=== PATIENT | female | born 1950 | race Hispanic/Latino ===

== ENCOUNTER 2022-01-01 18:50 | Observation (INO) | payer MEDICAID, OTHER ==
[~2022-01-01] VITALS: Ht 147.3 cm; Wt 68.0 kg
[2022-01-01 19:21] LABS: BASOPHILS % (AUTO) 0.7 % (0.0-5.0); EOSINOPHILS % (AUTO) 1.5 % (0.0-8.0); HEMATOCRIT 41.5 % (36-48); LYMPHOCYTES % (AUTO) 35.5 % (21.0-51.0); MEAN CORPUSCULAR HEMOGLOBIN 30.1 pg (27.0-33.0); MEAN CORPUSCULAR HGB CONC 34.5 g/dL (32.0-36.0); MEAN CORPUSCULAR VOLUME 87.4 fL (79-99); MONOCYTES % (AUTO) 9.6 % (3.0-13.0); NEUTROPHILS % (AUTO) 52.4 % (40.0-77.0); PLATELET COUNT (AUTO) 232 K/uL (130-400); RED BLOOD CELL COUNT(AUTO) 4.75 MIL/uL (4.00-5.50); RED CELL DISTRIBUTION WIDTH 12.7 % (11.0-15.5); WHITE BLOOD COUNT (AUTO) 9.7 K/uL (4.8-10.8)
[2022-01-01] MEDS ORDERED: NITROGLYCERIN 1GM OINT 1 INCH/1GM TD ONE (19:30)
[2022-01-01 19:35] LABS: CREATININE 0.9 mg/dL (0.5-1.5)
[2022-01-01 19:44] LABS: TOTAL PROTEIN, SERUM 7.6 g/dL (6.0-8.3)
[2022-01-01] MEDS ORDERED: 0.9%NACL 1000ML 1,000 ML IV SCH (23:00)
[2022-01-01] MEDS ORDERED: METOPROLOL TARTRATE 1 MG/ML 5ML VIAL IV PRN (23:00)
[2022-01-01] MEDS ORDERED: ACETAMINOPHEN 325 MG TAB PO PRN ×2 (23:00)
[2022-01-01] MEDS ORDERED: ONDANSETRON 4MG INJ IV PRN (23:00)
[2022-01-01] MEDS ORDERED: NITROGLYCERIN 1GM OINT 1 INCH/1GM TD SCH (23:00)
[2022-01-01] MEDS ORDERED: MORPHINE 2 MG SYG IV PRN (23:00)
[2022-01-02 06:59] LABS: BASOPHILS % (AUTO) 0.4 % (0.0-5.0); EOSINOPHILS % (AUTO) 1.9 % (0.0-8.0); HEMATOCRIT 36.2 % (36-48); LYMPHOCYTES % (AUTO) 31.7 % (21.0-51.0); MEAN CORPUSCULAR HEMOGLOBIN 30.6 pg (27.0-33.0); MEAN CORPUSCULAR HGB CONC 34.5 g/dL (32.0-36.0); MEAN CORPUSCULAR VOLUME 88.5 fL (79-99); MONOCYTES % (AUTO) 8.5 % (3.0-13.0); PLATELET COUNT (AUTO) 202 K/uL (130-400); RED BLOOD CELL COUNT(AUTO) 4.09 MIL/uL (4.00-5.50); RED CELL DISTRIBUTION WIDTH 13.1 % (11.0-15.5); WHITE BLOOD COUNT (AUTO) 10.1 K/uL (4.8-10.8)
[2022-01-02 07:37] LABS: ALBUMIN 2.9 g/dL (3.5-5.0); CREATININE 0.7 mg/dL (0.5-1.5); POTASSIUM 3.7 mmol/L (3.5-5.1); TOTAL PROTEIN, SERUM 5.9 g/dL (6.0-8.3)
[2022-01-02 08:06] LABS: ERYTHROCYTE SEDIMENTATION RATE 82 MM/HR (0-30)
[2022-01-02 08:23] LABS: CHOLESTEROL 191 mg/dL (<200); HDL CHOLESTEROL 41 mg/dL (35-85); LDL DIRECT 90 mg/dL (0-99); TRIGLYCERIDES 390 mg/dL (30-200)
[2022-01-02] MEDS: FAMOTIDINE 20MG VIAL IV SCH ×2 (08:40→20:36)
[2022-01-02] MEDS: METOPROLOL TARTRATE 25 MG TAB PO SCH ×2 (08:40→20:36)
[2022-01-02] MEDS: CLOPIDOGREL 75MG TAB PO SCH ×2 (08:40→09:00)
[2022-01-02] MEDS: ENOXAPARIN SODIUM 40 MG/0.4 ML SYRINGE SQ SCH (08:41)
[2022-01-02 09:20] LABS: HEMOGLOBIN A1C 5.8 % (4.0-6.0)
[2022-01-02] MEDS ORDERED: HYDROCHLOROTHIAZIDE 25 MG TABLET PO ONE (11:30)
[2022-01-02] MEDS ORDERED: LISINOPRIL 10 MG TABLET PO SCH (11:30)
[2022-01-02] MEDS ORDERED: ATORVASTATIN 20 MG TABLET PO ONE (11:30)
[2022-01-02] MEDS ORDERED: ATORVASTATIN 40 MG TABLET PO SCH ×2 (12:00→21:00)
[2022-01-02 20:00] VITALS: BP 183/87
[2022-01-02] MEDS ORDERED: ATORVASTATIN 20 MG TABLET PO SCH (21:00)
[2022-01-02 21:30] VITALS: BP 169/79
[2022-01-03] MEDS ORDERED: METOPROLOL TARTRATE 1 MG/ML 5ML VIAL IV PRN
[2022-01-03 00:20] VITALS: BP 159/74
[2022-01-03 04:57] VITALS: BP 146/73
[2022-01-03 08:00] VITALS: BP 166/80
[2022-01-03] MEDS: FAMOTIDINE 20MG VIAL IV SCH (08:52)
[2022-01-03] MEDS: ENOXAPARIN SODIUM 40 MG/0.4 ML SYRINGE SQ SCH (08:53)
[2022-01-03] MEDS: METOPROLOL TARTRATE 25 MG TAB PO SCH (08:54)
[2022-01-03] MEDS: CLOPIDOGREL 75MG TAB PO SCH (08:54)
[2022-01-03] MEDS ORDERED: HYDR25TA PO (09:29)
[2022-01-03] MEDS ORDERED: LISI20TA24 PO (09:29)
[2022-01-03] MEDS ORDERED: ATOR40TA69 PO (09:29)
[2022-01-03] MEDS ORDERED: CLOP-31 PO (09:29)
[2022-01-03] MEDS ORDERED: METO25 PO (09:29)
[2022-01-03] MEDS ORDERED: LISINOPRIL 20 MG TABLET PO SCH (09:30)
[2022-01-03] MEDS ORDERED: HYDROCHLOROTHIAZIDE 25 MG TABLET PO SCH (09:30)
[2022-01-03 12:00] VITALS: BP 140/67
[2022-01-03] MEDS ORDERED: CLOP75TA32 PO (13:57)
[2022-01-03] MEDS ORDERED: ATORVASTATIN 40 MG TABLET PO SCH (21:00)
[2022-01-04] MEDS ORDERED: LISINOPRIL 20 MG TABLET PO SCH (09:00)
[2022-01-04] MEDS ORDERED: HYDROCHLOROTHIAZIDE 25 MG TABLET PO SCH (09:00)
== END 2022-01-03 14:41 | disposition home or self-care (01) ==
LOC: EDH 18:50 → INTOOBSV 18:51 → EDHIP 18:51 → 3BH 01-02 17:11
PROVIDERS: ADMIT Internal Medicine; ATTEND Internal Medicine
DX: I24.9 Acute ischemic heart disease, unspecified (principal); R07.89 Other chest pain; R42 Dizziness and giddiness; I63.81 Other cerebral infarction due to occlusion or stenosis of small artery; I10 Essential (primary) hypertension; R20.2 Paresthesia of skin; Z90.49 Acquired absence of other specified parts of digestive tract
CPT/HCPCS: 96361 ×3; 99285; 84484 ×4; 80053 ×2; 85025 ×2; 36415 ×2; 71045; 93880; 93005 ×3; 96374; 96376 ×2; 96372 ×2; 83036; 80061; 85651; 70450; G0378 ×22; S0028 ×3; J1650 ×2; J3490

== ENCOUNTER → 2023-07-31 | Outpatient (CLI) | payer OTHER ==
[~2023-07-31] MED LIST: ATOR40TA69 PO; CLOP75TA32 PO; HYDR25TA PO; LISI20TA24 PO; METO25 PO
== END | disposition home or self-care (01) ==
LOC: RAH 09:54
PROVIDERS: ATTEND Family Medicine
DX: Z13.820 Encounter for screening for osteoporosis (principal); M81.8 Other osteoporosis without current pathological fracture; Z78.0 Asymptomatic menopausal state
CPT/HCPCS: 77080

== ENCOUNTER → 2023-09-06 | Outpatient (CLI) | payer OTHER ==
[~2023-09-06] MED LIST changes: +IOHEXOL 350 MG/ML 100ML INFUS..BTL IV ONE; +METOPROLOL TARTRATE 1 MG/ML 5ML VIAL IV ONE
== END | disposition home or self-care (01) ==
LOC: RAH 09:53
PROVIDERS: ATTEND Student in an Organized Health Care Education/Training Program
DX: R07.9 Chest pain, unspecified (principal)
CPT/HCPCS: 75574; J3490; Q9967

== ENCOUNTER → 2023-10-17 | Outpatient (CLI) | payer OTHER ==
[~2023-10-17] MED LIST changes: -IOHEXOL 350 MG/ML 100ML INFUS..BTL IV ONE; -METOPROLOL TARTRATE 1 MG/ML 5ML VIAL IV ONE
== END | disposition home or self-care (01) ==
LOC: SHCH 15:19
PROVIDERS: ATTEND Student in an Organized Health Care Education/Training Program
DX: I08.0 Rheumatic disorders of both mitral and aortic valves (principal); R07.9 Chest pain, unspecified
CPT/HCPCS: 93306

== ENCOUNTER → 2024-05-17 | Outpatient (CLI) | payer OTHER | END | disposition home or self-care (01) | LOC: SHCH 10:57 | PROVIDERS: ATTEND Student in an Organized Health Care Education/Training Program | DX: R09.89 Other specified symptoms and signs involving the circulatory and respiratory systems (principal) | CPT/HCPCS: 93880 ==

== ENCOUNTER 2025-04-22 06:13 | Observation (INO) | payer OTHER ==
[2025-04-21 12:17] VITALS: BP 137/69; PULSE 75; RESP 18; TEMP 98.2
[2025-04-21 12:19] LABS: IMMATURE GRANULOCYTE ABSOLUTE 0.04 K/uL (0-1); NUCLEATED RED BLOOD CELLS 0.0 % (0.0-0.19); PLATELET COUNT (AUTO) 221 K/uL (130-400); RED BLOOD CELL COUNT(AUTO) 4.68 MIL/uL (4.00-5.50); RED CELL DISTRIBUTION WIDTH 13.0 % (11.0-15.5); WHITE BLOOD COUNT (AUTO) 8.1 K/uL (4.8-10.8)
--- NOTE | 2025-04-21 12:30 | NUR ---
RE: IS INITIAL IS INITIAL TEACHING DONE BY RT SIA DURING PREOP.
[2025-04-21 12:31] LABS: INR 1.0 (0.85-1.15)
[2025-04-21 12:33] LABS: CREATININE 0.8 mg/dL (0.5-1.0); GLOMERULAR FILTR. RATE CALC 77.0 mL/min (>90); GLUCOSE,RANDOM 97.0 mg/dL (70-105); SODIUM SERUM 138.0 mmol/L (136-145); UREA NITROGEN, BLOOD 14.0 mg/dL (7-18)
[~2025-04-22] VITALS: Ht 142.2 cm; Wt 68.0 kg
[2025-04-22] VITALS (26 sets, daily range): BP systolic 126–162; BP diastolic 33–79; PULSE 71–100; RESP 13–22; TEMP 97.1–98.3; O2SAT 97–100
[~2025-04-22 06:13] MED LIST changes: +ALEN70TA80 PO; -ATOR40TA69 PO; -CLOP75TA32 PO; +ERGO500093 PO; -HYDR25TA PO; -LISI20TA24 PO; +LOSA50TA64 PO; -METO25 PO
[2025-04-22] MEDS: CLINDAMYCIN IVPB 900MG/50ML 0 ML IV ONE (06:22)
[2025-04-22] MEDS: LACTATED RINGERS 1000ML 1,000 ML IV ONE (06:22)
[2025-04-22] MEDS ORDERED: MIDAZOLAM HCL 1 MG/ML 2ML VIAL ONE (06:49)
[2025-04-22] MEDS ORDERED: LIDOCAINE HCL/EPINEPHRINE 30 ML VIAL IJ ONE (07:10)
[2025-04-22] MEDS ORDERED: TRANEXAMIC ACID 1000MG/10ML ONE (08:00)
[2025-04-22] MEDS: TRANEXAMIC ACID 1000MG/10ML IV ONE ×3 (08:10→09:20)
[2025-04-22] MEDS ORDERED: NEOSTIGMINE METHYLSULFATE 1MG/ML IV ONE (09:55)
[2025-04-22] MEDS ORDERED: GLYCOPYRROLATE 0.2 MG/ML 5 ML VIAL ONE (09:55)
[2025-04-22] MEDS: 0.9%NACL 1000ML 1,000 ML IV SCH (10:00)
[2025-04-22] MEDS ORDERED: PoTASSium chl 10% ELIXIR 20MEQ 20 MEQ/15 ML UDCUP PO PRN (10:00)
[2025-04-22] MEDS ORDERED: CALCIUM CARB 500MG PO PRN (10:00)
[2025-04-22] MEDS ORDERED: CYCLOBENZAPRINE HCL 10 MG TABLET PO PRN (10:00)
[2025-04-22] MEDS ORDERED: PoTASSium chloRIDE 20MEQ ER 20 MEQ ERTAB PO PRN (10:00)
[2025-04-22] MEDS ORDERED: FERROUS FUMARATE 324 MG TABLET PO PRN (10:00)
--- NOTE | 2025-04-22 10:01 | OP ---
Operative Note: DATE OF PROCEDURE: 04/22/25 PREOPERATIVE DIAGNOSIS: Left knee osteoarthritis. POSTOPERATIVE DIAGNOSIS: Left knee osteoarthritis. PROCEDURE PERFORMED: Left knee total knee arthroplasty. SURGEON: Hailey Tate MD WOOL SAMPLER: Gabriel Nolasco and Eveline Sanchez. ANESTHESIA: General with adductor canal block. ANESTHESIA: SECURITY [employer]UTIONS ARCHITECT Klever Higgins. ESTIMATED BLOOD LOSS: 50cc. COMPLICATIONS: None. DRAINS: None. SPECIMENS REMOVED: resected bone. Not sent to pathology. IMPLANTS: [employer] II BCS size 3 Oxinium femur, size 2 tibial base plate, 32 mm patella, 9 mm polyethylene STATEMENT OF MEDICAL NECESSITY: The patient is a 74-year-old female who suffers from left knee osteoarthritis failing conservative management. After discussion of the risks, benefits, and alternatives with the patient, they voluntarily agreed to undergo the aforementioned procedure. DESCRIPTION OF PROCEDURE: Patient was properly identified in the preoperative holding area. Surgical site marking was verified and surgery consent reviewed. The patient was then taken to the operating room and placed in supine position on the OR table. After induction of general anesthesia, preoperative antibiotics were given, all bony prominences were well-padded, and a well padded tourniquet was applied but not inflated at this time. The left lower extremity was then prepped and draped in usual sterile fashion. Surgical time out was done verifying correct surgery, side, site, and location to be performed. We then began the procedure by exsanguinating the limb using an Esmarch and inflating the tourniquet to 350 mmHg. At this point, we made an anterior midline incision using a 10 blade, coming down sharply the level of the fascia. Skin flaps were elevated medially and laterally. We then obtained a clean 10 blade and performed a standard medial parapatellar arthrotomy. We excised the infrapatellar fat pad. We performed our soft tissue releases off of the tibia. We transected the ACL and removed the anterior portion of the medial & lateral meniscus. We then brought the knee into hyperflexion with the patella everted. We used our entry reamer to enter the femoral canal. We then placed our intramedullary cutting guide for our distal femoral cutting block. We then performed our distal femoral osteotomy ensuring appropriate rotation and removed the bony wafer. We then removed these pins and block and then used jig 2 to size the distal femur with the after mentioned size found. We then placed our 5-in-1 cutting block in 3 degrees of external rotation and took our 5 cuts ensuring to protect the patellar tendon and the collateral ligaments. We then removed the cutting block and our bony fragments using a curved osteotome. We then placed our PCL retractor subluxating the tibia anteriorly. Using an extra medullary tibial cutting guide, we hung the block for our proximal tibial cut taking 2 mm off the more diseased portion. Prior to pinning this block in place, we ensured appropriate varus/valgus alignment and posterior slope similar to the [place] slope of the patient's knee. We then performed our proximal tibia l osteotomy and removed the bony wafer using Bovie electrocautery to release any remaining soft tissue attachments. We then used our tibial sizing paddle and checked once more for varus & valgus alignment and found this to be appropriate. At this point, we pinned our tibial paddle in place. We then removed the PCL retractor and subluxated the tibia posteriorly while we placed our femoral trial component. We then finished preparing the notch with the reamer and box chisel. The notch portion of the trial femoral component was then placed. A posterior stabilized polyethylene, size 9 trial was placed. The knee was then taken thro [facility] range of motion and found to have stable full range of motion. We then placed a bump under the ankle and everted the patella to perform our freehand cut of the undersurface the patella. We then sized our patella and reamed to the lug holes for this. We placed our trial patellar component and begin to take the knee through range of motion. The patella had mild lateral tracking that improved after a small lateral release. At this point we began removing our trial components and punched the tibial keel prior to removing our tibial trial component. Final components were opened and cement was mixed on the back table while we injected local cocktail in the posterior capsule. We then thoroughly irrigated out the bone and dried the bony surfaces. We cemented our tibial component in place ensuring to remove excess cement and placed our trial polyethylene. We then cemented our femoral component in place once again taking time to ensure excess cement was removed leg was brought into full extension to help squeeze the excess cement from around the femoral component. We then brought the knee back in a flexion to remove this portion of the cement at this point we placed the ankle in a bump thoroughly irrigated off the patellar component and cemented our patellar component in standard fashion again removing excess cement. While we waited for the cement to cure, we thoroughly irrigated out the wound with normal saline. Once our cement had cured, we took the knee through a range of motion and found full and stable range of motion. We then elected to use the size 9 polyethylene and removed our trial polyethylene. We impacted our final polyethylene component in place in standard fashion and took the knee through a range of motion check once more. This was satisfactory so we began to repair the arthrotomy using #5 Ethibond and #1 Vicryl in interrupted [id number] fashion. Subcutaneous tissue was repaired using 2-0 Vicryl. Running subcuticular 3-0 Monocryl stitch with Dermabond placed over this for the skin. We then applied a foam barrier dressing and a pressure dressing consisting of 4 x 4's fluffs and an Antonio wrap. The tourniquet was then deflated. Patient was awakened from anesthesia, and they were taken to the recovery room in stable condition. HAILEY TATE MD Apr 22, 2025 10:01
[2025-04-22] MEDS ORDERED: PROMETHAZINE HCL 25 MG/ML 1ML AMPULE IM PRN (10:30)
--- NOTE | 2025-04-22 11:12 | HMCIMG ---
EXAM: CR left knee, 2 View. CLINICAL HISTORY: S/P LEFT TKA SURGERY COMPARISON: None provided. FINDINGS: Left total knee arthroplasty near anatomic alignment. No displaced fracture. Appropriate postsurgical changes about the left knee. Left knee joint effusion. IMPRESSION: 1. Left total knee arthroplasty in near anatomic alignment with joint effusion. /Henning
--- NOTE | 2025-04-22 11:20 | NUR ---
PATIENT ARRIVED TO ROOM 408 POST LTKA. PATIENT IS AWAKE, ALERT AND ORIENTED.
--- NOTE | 2025-04-22 13:30 | NUR ---
Unable to see patient due to severe pain, 01/14. Katie, nurse, informed. PT team to follow.
[2025-04-22] MEDS: HYDROcodone/APAP 5/325 1 TAB TABLET PO PRN (14:33)
--- NOTE | 2025-04-22 15:00 | NUR ---
ORTHO COORDINATOR: TEACHING REGARDING DVT AND PNEUMONIA PREVENTION, PAIN EXPECTATIONS AND PAIN MANAGEMENT. PATIENT UP TO CHAIR EATING DINNER, SPOUSE AT BEDSIDE. 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 B SCD SLEEVES IN ROOM, MACHINE IN ROOM. YOLY BANDAGE TO L KNEE. ICE PACK IN ROOM. PATIENT RETURN DEMONSTRATED PROPER USE OF INCENTIVE SPIROMETER AND VERBALIZED PROPER FREQUENCY OF USE. RATIONALE FOR USE REINFORCED. PATIENT RETURN DEMONSTRATED PROPER FOOT FLEXION AND EXTENSION EXERCISES, RATIONALE PROVIDED. PATIENT INTENDS TO DISCHARGE TO REHAB, REHAB PROCESS AND EXPECTATIONS REVIEWED. PAIN MANAGEMENT STRATEGY REVIEWED. PATIENT EDUCATED ON SCHEDULED AND PRN PAIN MEDICATIONS. NUMERIC PAIN SCALE REVIEWED. PATIENT INSTRUCTED MUST CALL OUT FOR PRN MEDICATIONS AND PROVIDE NUMERIC PAIN RATING AND TYPE OF PAIN, RATIONALE PROVIDED. SET EXPECTATION FOR PATIENT TO SHOWER TOMORROW, RATIONALE PROVIDED. PATIENT AND SPOUSE VERBALIZED UNDERSTANDING TO ALL INSTRUCTIONS. NO ADDITIONAL QUESTIONS OR CONCERNS AT THIS TIME.
[2025-04-23] VITALS: BP 121/55; PULSE 102; RESP 20; TEMP 99.1
[2025-04-23 04:00] VITALS: BP 126/59; PULSE 103; RESP 20; TEMP 98.6
[2025-04-23 05:46] LABS: NUCLEATED RED BLOOD CELLS 0.0 % (0.0-0.19); PLATELET COUNT (AUTO) 215.0 K/uL (130-400); RED BLOOD CELL COUNT(AUTO) 4.35 MIL/uL (4.00-5.50); RED CELL DISTRIBUTION WIDTH 13.1 % (11.0-15.5); WHITE BLOOD COUNT (AUTO) 16.0 K/uL (4.8-10.8)
[2025-04-23 05:54] LABS: CREATININE 1.2 mg/dL (0.5-1.0); GLOMERULAR FILTR. RATE CALC 47.0 mL/min (>90); GLUCOSE,RANDOM 126.0 mg/dL (70-105); SODIUM SERUM 139.0 mmol/L (136-145); UREA NITROGEN, BLOOD 22.0 mg/dL (7-18)
--- NOTE | 2025-04-23 07:56 | PN ---
Ortho postop day one. This morning patient is awake alert oriented. She is seated in a chair out of bed. Reports adequate pain control. Vital signs have remained stable afebrile. Laboratory results reviewed. Operative findings discussed with the patient. Antonio bandage his already been removed and the dressing is intact. She is seated in a chair and has been alternating using a footstool performing extension and flexion. The gastrocnemius a soft and nontender. Negative Homans. She does have bilateral SCD sleeves present but not currently connected. Ice present to operative site. Ambulated yesterday with physical therapy and is pending therapy this morning. Anticipated discharge goal is skilled nurse facility. Assessment: Status post left total knee arthroplasty. Plan: Continue with Dr. Tate's TKA protocol and discharge planning. Vitals/Labs Vital Signs Date Time Temp Pulse Resp B/P (MAP) Pulse Ox O2 Delivery O2 Flow Rate FiO2 04/23/25 04:00 98.6 103 20 126/59 94 Room Air 04/22/25 20:00 0 21 Laboratory Tests 04/23/25 05:40 Medications Current Medications Clindamycin HCl/ Dextrose 0 ml @ As Directed STK-MED ONCE IV; Start 04/22/25 at 06:22; Stop 04/22/25 at 06:22; Status DC Lactated Ringer's 1,000 ml @ As Directed STK-MED ONCE IV; Start 04/22/25 at 06:22; Stop 04/22/25 at 06:22; Status DC Propofol 200 mg STK-MED ONCE IV; Start 04/22/25 at 06:49; Stop 04/22/25 at 06:49; Status DC Midazolam HCl 2 mg STK-MED ONCE .ROUTE; Start 04/22/25 at 06:49; Stop 04/22/25 at 06:50; Status DC Fentanyl Citrate 100 mcg STK-MED ONCE .ROUTE; Start 04/22/25 at 06:50; Stop 04/22/25 at 06:50; Status DC Ondansetron HCl 4 mg STK-MED ONCE .ROUTE; Start 04/22/25 at 07:03; Stop 04/22/25 at 07:04; Status DC Phenylephrine HCl 10 mg STK-MED ONCE IV; Start 04/22/25 at 07:04; Stop 04/22/25 at 07:04; Status DC Rocuronium [place] 50 mg STK-MED ONCE .ROUTE; Start 04/22/25 at 07:08; Stop 04/22/25 at 07:08; Status DC Ropivacaine 150 mg STK-MED ONCE .ROUTE; Start 04/22/25 at 07:10; Stop 04/22/25 at 07:10; Status DC Lidocaine/ Epinephrine 30 ml STK-MED ONCE IJ; Start 04/22/25 at 07:10; Stop 04/22/25 at 07:10; Status DC Acetaminophen 100 ml @ As Directed STK-MED ONCE .ROUTE; Start 04/22/25 at 07:24; Stop 04/22/25 at 07:24; Status DC Cefazolin Sodium 2 gm STK-MED ONCE .ROUTE; Start 04/22/25 at 07:31; Stop 04/22/25 at 07:31; Status DC Tranexamic Acid 1,000 mg STK-MED ONCE .ROUTE; Start 04/22/25 at 08:00; Stop 04/22/25 at 08:00; Status DC Ketorolac Tromethamine 30 mg STK-MED ONCE .ROUTE; Start 04/22/25 at 08:13; Stop 04/22/25 at 08:13; Status DC Ropivacaine 150 mg STK-MED ONCE .ROUTE; Start 04/22/25 at 08:13; Stop 04/22/25 at 08:13; Status DC Cefazolin Sodium 2 gm STK-MED ONCE IVPB Last administered on 04/22/25at 08:00; Start 04/22/25 at 08:00; Stop 04/22/25 at 09:19; Status DC Tranexamic Acid 1,000 mg STK-MED ONCE IV Last administered on 04/22/25at 08:10; Start 04/22/25 at 08:10; Stop 04/22/25 at 09:19; Status DC Ropivacaine 150 mg STK-MED ONCE IJ Last administered on 04/22/25at 09:10; Start 04/22/25 at 09:10; Stop 04/22/25 at 09:19; Status DC Ketorolac Tromethamine 30 mg STK-MED ONCE IJ Last administered on 04/22/25at 09:10; Start 04/22/25 at 09:10; Stop 04/22/25 at 09:19; Status DC Tranexamic Acid 1,000 mg STK-MED ONCE IV; Start 04/22/25 at 00:00; Stop 04/22/25 at 00:01; Status Cancel Tranexamic Acid 1,000 mg STK-MED ONCE IV Last administered on 04/22/25at 09:20; Start 04/22/25 at 09:20; Stop 04/22/25 at 09:20; Status DC Fentanyl Citrate 100 mcg STK-MED ONCE .ROUTE; Start 04/22/25 at 09:33; Stop 04/22/25 at 09:33; Status DC Sodium Chloride 1,000 ml @ 100 mls/hr Q10H IV Last administered on 04/22/25at 10:00; Start 04/22/25 at 10:00; Stop 04/23/25 at 09:59 Polyethylene Glycol 17 gm DAILY PO; Start 04/23/25 at 09:00; Stop 05/23/25 at 08:59 Bisacodyl 10 mg DAILY PRN RC; Start 04/25/25 at 10:00; Stop 05/25/25 at 09:59 Ketorolac Tromethamine 15 mg Q6H PRN IV; Start 04/23/25 at 10:00; Stop 04/28/25 at 09:59 Ferrous Fumarate 324 mg DAILY PRN PO; Start 04/22/25 at 10:00; Stop 05/22/25 at 09:59 Ondansetron HCl 4 mg Q6H PRN IVP; Start 04/22/25 at 10:00; Stop 05/22/25 at 09:59 Calcium Carbonate 500 mg Q12H PRN PO; Start 04/22/25 at 10:00; Stop 05/22/25 at 09:59 Cefazolin Sodium 2 gm Q8H IVPB Last administered on 04/22/25at 23:14; Start 04/22/25 at 15:00; Stop 04/22/25 at 23:01; Status DC Cyclobenzaprine HCl 5 mg Q8H PRN PO; Start 04/22/25 at 10:00; Stop 05/22/25 at 09:59 Ketorolac Tromethamine 15 mg Q8H IV Last administered on 04/22/25at 18:33; Start 04/22/25 at 10:30; Stop 04/23/25 at 02:31; Status DC Docusate Sodium 100 mg BID PO Last administered on 04/22/25at 20:15; Start 04/22/25 at 21:00; Stop 05/22/25 at 20:59 Potassium Chloride 100 ml @ 100 mls/hr AD PRN IV; Start 04/22/25 at 10:00; Stop 05/22/25 at 09:59 Potassium Chloride 20 meq AD PRN PO; Start 04/22/25 at 10:00; Stop 05/22/25 at 09:59 Potassium Chloride 20 meq AD PRN PO; Start 04/22/25 at 10:00; Stop 05/22/25 at 09:59 Tramadol HCl 50 mg Q6H PRN PO; Start 04/22/25 at 10:00; Stop 04/27/25 at 09:59 Acetaminophen/ Hydrocodone Bitart Q4H PRN PO Last administered on 04/23/25at 06:51; Start 04/22/25 at 10:00; Stop 04/27/25 at 09:59 Apixaban 2.5 mg BID PO; Start 04/23/25 at 21:00; Stop 05/23/25 at 20:59 Losartan Potassium 50 mg DAILY PO; Start 04/23/25 at 09:00; Stop 05/23/25 at 08:59 Glycopyrrolate 1 mg STK-MED ONCE .ROUTE; Start 04/22/25 at 09:55; Stop 04/22/25 at 09:55; Status DC Neostigmine Methylsulfate 10 mg STK-MED ONCE IV; Start 04/22/25 at 09:55; Stop 04/22/25 at 09:55; Status DC Fentanyl Citrate 100 mcg STK-MED ONCE .ROUTE; Start 04/22/25 at 09:56; Stop 04/22/25 at 09:56; Status DC Ondansetron HCl 4 mg AD PRN IVP; Start 04/22/25 at 10:30; Stop 04/22/25 at 11:11; Status DC Metoclopramide HCl 10 mg AD PRN IVP; Start 04/22/25 at 10:30; Stop 04/22/25 at 11:26; Status DC Promethazine HCl 25 mg AD PRN IM; Start 04/22/25 at 10:30; Stop 04/22/25 at 11:12; Status DC Ketorolac Tromethamine 30 mg AD PRN IV; Start 04/22/25 at 10:30; Stop 04/22/25 at 10:26; Status DC Morphine Sulfate 2 mg AD PRN IVP; Start 04/22/25 at 10:30; Stop 04/22/25 at 11:11; Status DC Fentanyl Citrate 25 mcg Q5MIN PRN IVP; Start 04/22/25 at 10:30; Stop 04/22/25 at 11:11; Status DC Naloxone HCl 0.1 mg AD PRN IVP; Start 04/22/25 at 10:30; Stop 04/22/25 at 11:12; Status DC Ketorolac Tromethamine 15 mg STK-MED ONCE .ROUTE; Start 04/22/25 at 10:28; Stop 04/22/25 at 10:28; Status DC Home Med ERGOCALCIFEROL (VITAMIN D2) 3,000 UNITS QWEEK PO; Start 04/29/25 at 09:00; Stop 05/29/25 at 08:59 Alendronate Sodium 70 mg QWEEK@0630 PO; Start 04/29/25 at 06:30; Stop 05/29/25 at 06:29 CRISTIAN YO CRA OFFICER Apr 23, 2025 07:56
[2025-04-23 08:00] VITALS: BP 158/65; PULSE 100; RESP 18; TEMP 97.9
[2025-04-23 12:00] VITALS: BP 154/67; PULSE 94; RESP 18; TEMP 98.2
--- NOTE | 2025-04-23 14:00 | NUR ---
ORTHO COORDINATOR: REINFORCED TEACHING. PATIENT POSITIONED ON SIDE OF BED, FEET DANGLING, WALKER IN FRONT OF PATIENT. MULTIPLE VISITORS AT BEDSIDE. PATIENT ENCOURAGED TO CONTINUE AFTER DISCHARGE TO REHAB INCENTIVE SPIROMETER UNTIL PRESURGERY ACTIVITY LEVEL ACHIEVED, TO CONTINUE PREMEDICATING PRIOR TO PHYSICAL THERAPY SESSIONS AND PERIODS OF HIGH ACTIVITY, TO CONTINUE FOOT FLEXION AND EXTENSION EXERCISES, INCREASE DISTANCE AMBULATING AND REMAIN HYDRATED. PATIENT AND FAMILY VERBALIZED UNDERSTANDING TO ALL INSTRUCTIONS. PRIMARY NURSE AT BEDSIDE. NO ADDITIONAL QUESTIONS OR CONCERNS AT THIS TIME.
[2025-04-23] MEDS ORDERED: DOCU-116 PO (14:14)
[2025-04-23] MEDS ORDERED: HYDR-4060 PO (14:14)
[2025-04-23] MEDS ORDERED: PANT40TA54 PO (14:14)
[2025-04-23] MEDS ORDERED: APIX2.5T PO (14:14)
[2025-04-23] MEDS ORDERED: CYCL-309 PO (14:14)
[2025-04-23] MEDS: LACTULOSE 20 GM/30 ML UDCUP PO ONE (15:30)
[2025-04-23 16:00] VITALS: BP 145/75; PULSE 94; RESP 18; TEMP 97.8
--- NOTE | 2025-04-23 17:58 | NUR ---
PATIENT IS DISCHARGED IV TAKEN OUT WITH CATHETER INTACT. EDUCATION MATERIAL PROVIDED TO PATIENT. REPORT GIVEN TO FLORENTINO MENENDEZ AT [facility].
[2025-04-29] MEDS ORDERED: ALENDRONATE SODIUM 35 MG TAB PO SCH (06:30)
== END 2025-04-23 17:57 ==
LOC: DAH 06:13 → DAHIP 06:14 → UNDOADMOB 06:14 → DAHIP 09:44 → 4BH 11:20
PROVIDERS: ADMIT Student in an Organized Health Care Education/Training Program; ATTEND Student in an Organized Health Care Education/Training Program
DX: M17.12 Unilateral primary osteoarthritis, left knee (principal); I10 Essential (primary) hypertension; E78.5 Hyperlipidemia, unspecified; Z90.49 Acquired absence of other specified parts of digestive tract; Z88.0 Allergy status to penicillin; Z88.6 Allergy status to analgesic agent; Z86.73 Personal history of transient ischemic attack (TIA), and cerebral infarction without residual deficits; Z79.899 Other long term (current) drug therapy; Z86.2 Personal history of diseases of the blood and blood-forming organs and certain disorders involving the immune mechanism
CPT/HCPCS: 82040; 80048 ×2; 85025; 85610; 85730; 84134; 86140; 36415 ×2; 87641; 27447; 96365; 96366; 96375; 73560; 97161; 97116 ×3; 96376; 85027; 97530 ×2; G0378 ×32; A4663; J7030; A4600; J7120; J3010 ×3; J3490 ×5; J2250; J2704; J2405; J1885 ×5; J2710; J2795 ×3; J2371; J0690 ×4; C1713 ×2; A4649 ×2; A4930; C1776; A6255; A5120; A4215; A4223 ×2; A4213; A4222; A4221; A4216